=== PATIENT | male | born 1980 | race Caucasian/White ===

== ENCOUNTER 2018-10-18 16:34 | Emergency (ER) | payer BC, OTHER ==
[2018-10-18 17:01] VITALS: TEMP 98.1
[2018-10-18] MEDS ORDERED: SODIUM CHLORIDE 0.9% 2,000 ML IV ONE (17:53)
--- NOTE | 2018-10-18 17:57 | ED ---
General Adult HPI - General Source: patient Mode of arrival: ambulatory Limitations: no limitations <Love Carlton - Last Filed: 10/18/18 18:02> <Aren Weir - Last Filed: 10/18/18 20:35> - General Chief complaint: Recheck/Abnormal Lab/Rx Stated complaint: High sugar Time Seen by Provider: 10/18/18 17:22 - History of Present Illness Initial comments: 38-year-old male patient presents to the emergency department today for evaluation of increased thirst, frequent urination, and just general malaise. Patient states that for the last 2 months he has had increase in the symptoms. Patient states he did attempt to take his blood sugar twice today and the machine just read high. Patient states that a couple of years ago he had an episode of what sounds like pancreatitis where he was started on insulin, states once he had treatment his blood sugars were under control and they stopped the medication. Patient denies any dizziness or weakness. States he has had intermittent nausea with no vomiting. No abdominal pain. Patient denies any recent rash, fever, chills, shortness breath, chest pain,back pain, numbness, tingling, dizziness, weakness, hematuria, dysuria, urinary urgency, headache, visual changes, or any other complaints. (Love Carlton) - Related Data Home Medications Medication Instructions Recorded Confirmed Omeprazole [PriLOSEC] 20 mg PO HS PRN 01/13/15 10/18/18 Multivitamins, Thera [Multivitamin 1 tab PO DAILY 10/18/18 10/18/18 (formulary)] Previous Rx's Medication Instructions Recorded metFORMIN HCL [Riomet] 500 mg PO BID #60 ml 10/18/18 Allergies Allergy/AdvReac Type Severity Reaction Status Date / Time No Known Allergies Allergy Verified 10/18/18 17:28 Review of Systems ROS Other: All systems not noted in ROS Statement are negative. <Love Carlton - Last Filed: 10/18/18 18:02> ROS Other: All systems not noted in ROS Statement are negative. <Aren Weir - Last Filed: 10/18/18 20:35> ROS Statement: Those systems with pertinent positive or pertinent negative responses have been documented in the HPI. Past Medical History Past Medical History: Diabetes Mellitus, GERD/Reflux, Hyperlipidemia, Hypertension, Sleep Apnea/CPAP/BIPAP Additional Past Medical History / Comment(s): Pancreatitis History of Any Multi-Drug Resistant Organisms: None Reported Past Surgical History: No Surgical Hx Reported Past Psychological History: Anxiety Smoking Status: Current every day smoker Past Alcohol Use History: None Reported Past Drug Use History: None Reported <Love Carlton M - Last Filed: 10/18/18 18:02> General Exam Limitations: no limitations General appearance: alert, in no apparent distress, other (This is a well- developed, well-nourished adult male patient in no acute distress. Vital signs upon presentation are temperature 98.1F, pulse 107, respirations 16, blood pressure 152/91, pulse ox 97% on room air.) Eye exam: Present: normal appearance, PERRL, EOMI. Absent: scleral icterus, conjunctival injection, periorbital swelling ENT exam: Present: normal exam, normal oropharynx, mucous membranes moist Respiratory exam: Present: normal lung sounds bilaterally. Absent: respiratory distress, wheezes, rales, rhonchi, stridor Cardiovascular Exam: Present: normal rhythm, tachycardia, normal heart sounds. Absent: systolic murmur, diastolic murmur, rubs, gallop, clicks GI/Abdominal exam: Present: soft, normal bowel sounds. Absent: distended, tenderness, guarding, rebound, rigid Neurological exam: Present: alert, oriented X3, CN II-XII intact Psychiatric exam: Present: normal affect, normal mood Skin exam: Present: warm, dry, intact, normal color. Absent: rash <Love Carlton M - Last Filed: 10/18/18 18:02> General appearance: alert, in no apparent distress Head exam: Present: atraumatic, normocephalic, normal inspection Eye exam: Present: normal appearance, PERRL, EOMI. Absent: scleral icterus, conjunctival injection, periorbital swelling ENT exam: Present: normal exam, mucous membranes moist Neck exam: Present: normal inspection. Absent: tenderness, meningismus, lymphadenopathy Respiratory exam: Present: normal lung sounds bilaterally. Absent: respiratory distress, wheezes, rales, rhonchi, stridor Cardiovascular Exam: Present: regular rate, normal rhythm, normal heart sounds. Absent: systolic murmur, diastolic murmur, rubs, gallop, clicks GI/Abdominal exam: Present: soft, normal bowel sounds. Absent: distended, tenderness, guarding, rebound, rigid Extremities exam: Present: normal inspection, full ROM, normal capillary refill. Absent: tenderness, pedal edema, joint swelling, calf tenderness Back exam: Present: normal inspection Neurological exam: Present: alert, oriented X3, CN II-XII intact Psychiatric exam: Present: normal affect, normal mood Skin exam: Present: warm, dry, intact, normal color. Absent: rash <Aren Weir - Last Filed: 10/18/18 20:35> Course <Love Carlton - Last Filed: 10/18/18 18:02> <Aren Weir - Last Filed: 10/18/18 20:35> Vital Signs 10/18/18 16:58 Temperature 98.1 F Pulse Rate 107 H Respiratory 16 Rate Blood Pressure 152/91 O2 Sat by Pulse 97 Oximetry - Reevaluation(s) Reevaluation #1: 10/18/18 20:34 Medical record is reviewed (Aren Weir) Reevaluation #2: 10/18/18 20:34 Patient is reassessed awake and alert now with significant new onset diabetes mellitus, no other abnormal tests, patient has improvement in blood sugar able to tolerate oral intake, given dietary advice and can be discharged home ( Aren Weir) Medical Decision Making <Love Carlton - Last Filed: 10/18/18 18:02> - Lab Data Result diagrams: 10/18/18 18:34 10/18/18 18:34 <Aren Weir - Last Filed: 10/18/18 20:35> - Medical Decision Making 38-year-old male to ER for evaluation of abnormal lab tests elevated blood sugar. Patient presents with elevated blood sugar today. Increased thirst and increased urination. Patient's blood sugars improved control here in the ER, encouraged to drink increased water, patient can be discharged home (Aren Weir) - Lab Data Lab Results 10/18/18 10/18/18 Range/Units 18:34 18:34 WBC 7.6 (3.8-10.6) k/uL RBC 5.51 (4.30-5.90) m/uL Hgb 17.3 (13.0-17.5) gm/dL Hct 49.8 (39.0-53.0) % MCV 90.3 (80.0-100.0) fL MCH 31.3 (25.0-35.0) pg MCHC 34.7 (31.0-37.0) g/dL RDW 13.0 (11.5-15.5) % Plt Count 149 L (150-450) k/uL Neutrophils % 63 % Lymphocytes % 27 % Monocytes % 5 % Eosinophils % 2 % Basophils % 1 % Neutrophils # 4.8 (1.3-7.7) k/uL Lymphocytes # 2.1 (1.0-4.8) k/uL Monocytes # 0.4 (0-1.0) k/uL Eosinophils # 0.2 (0-0.7) k/uL Basophils # 0.1 (0-0.2) k/uL Sodium 134 L (137-145) mmol/L Potassium 5.0 (3.5-5.1) mmol/L Chloride 97 L (98-107) mmol/L Carbon Dioxide 26 (22-30) mmol/L Anion Gap 11 mmol/L BUN 14 (9-20) mg/dL Creatinine 0.85 (0.66-1.25) mg/dL Est GFR (CKD-EPI)AfAm >90 (>60 ml/min/1.73 sqM) Est GFR (CKD-EPI)NonAf >90 (>60 ml/min/1.73 sqM) Glucose 587 H* (74-99) mg/dL Calcium 9.8 (8.4-10.2) mg/dL Total Bilirubin 0.8 (0.2-1.3) mg/dL AST 61 H (17-59) U/L ALT 98 H (21-72) U/L Alkaline Phosphatase 94 (38-126) U/L Total Protein 8.4 H (6.3-8.2) g/dL Albumin 4.4 (3.5-5.0) g/dL Amylase 47 (30-110) U/L Lipase 85 (23-300) U/L Acetone, Qual Negative (Negative) Disposition <Love Carlton - Last Filed: 10/18/18 18:02> Is patient prescribed a controlled substance at d/c from ED?: No <Aren Weir - Last Filed: 10/18/18 20:35> Clinical Impression: Hyperglycemia, Dehydration, Diabetes mellitus, new onset Disposition: HOME SELF-CARE Condition: Good Instructions: Diabetic Hyperglycemia (ED) Prescriptions: metFORMIN HCL [Riomet] 500 mg PO BID #60 ml Referrals: Delores Johnston MD [Primary Care Provider] - 1-2 days
[2018-10-18 19:00] LABS: Basophils # (A) 0.1 k/uL (0-0.2); Basophils % (A) 1 %; Eosinophils # (A) 0.2 k/uL (0-0.7); Eosinophils % (A) 2 %; HCT 49.8 % (39.0-53.0); HGB 17.3 gm/dL (13.0-17.5); Lymphocytes # (A) 2.1 k/uL (1.0-4.8); Lymphocytes % (A) 27 %; MCH 31.3 pg (25.0-35.0); MCHC 34.7 g/dL (31.0-37.0); MCV 90.3 fL (80.0-100.0); Mean Platelet Volume 10.2; Monocytes # (A) 0.4 k/uL (0-1.0); Monocytes % (A) 5 %; Neutrophils # (A) 4.8 k/uL (1.3-7.7); Neutrophils % (A) 63 %; Platelet Count 149 k/uL (150-450); RBC 5.51 m/uL (4.30-5.90); WBC 7.6 k/uL (3.8-10.6)
[2018-10-18 19:15] LABS: ALT 98 U/L (21-72); AST 61 U/L (17-59); Albumin 4.4 g/dL (3.5-5.0); Alkaline Phosphatase 94 U/L (38-126); Amylase 47 U/L (30-110); Anion Gap 11 mmol/L; Blood Urea Nitrogen 14 mg/dL (9-20); Calcium 9.8 mg/dL (8.4-10.2); Carbon Dioxide 26 mmol/L (22-30); Chloride 97 mmol/L (98-107); Lipase 85 U/L (23-300); Sodium 134 mmol/L (137-145); Total Bilirubin 0.8 mg/dL (0.2-1.3); Total Protein 8.4 g/dL (6.3-8.2)
[2018-10-18 19:23] LABS: Glucose 587 mg/dL (74-99)
[2018-10-18] MEDS ORDERED: SODIUM CHLORIDE 0.9% 500 ML 500 ML IV STA (19:48)
[2018-10-18] MEDS ORDERED: metFORMIN 500 MG TAB PO STA (19:52)
[2018-10-18] MEDS ORDERED: INSULIN REGULAR 100 UNIT/ML VIAL SQ ONE (20:15)
[2018-10-18] MEDS ORDERED: INSULIN REGULAR 100 UNIT/ML VIAL IV ONE (20:15)
[2018-10-18 21:06] LABS: Glucose,Whole Blood 364 mg/dL (75-99)
[2018-10-18 21:21] LABS: Appearance,Urine Clear (Clear); Bilirubin,Urine Negative (Negative); Blood,Urine Negative (Negative); Color,Urine Light Yellow; Glucose,Urine (UA) 4+ (Negative); Ketones,Urine Trace (Negative); Leukocyte Esterase,Urine Negative (Negative); Nitrite,Urine Negative (Negative); Protein,Urine Negative (Negative); Specific Gravity,Urine 1.031 (1.001-1.035); Urobilinogen,Urine <2.0 mg/dL (<2.0)
[2018-10-18 21:37] VITALS: BP 150/83; PULSE 79; RESP 20
== END 2018-10-18 21:39 | disposition home or self-care (01) ==
LOC: EC 16:34
DX: E86.0 Dehydration (principal); E11.65 Type 2 diabetes mellitus with hyperglycemia; R00.0 Tachycardia, unspecified; R11.0 Nausea; G47.30 Sleep apnea, unspecified; F17.200 Nicotine dependence, unspecified, uncomplicated; Z99.89 Dependence on other enabling machines and devices
CPT/HCPCS: 36415; 80053; 81003; 82009; 82150; 83690; 85025; 87077; 87086; 87186; 96360; 96361; 99284

== ENCOUNTER → 2018-11-04 | Outpatient (CLI) | payer OTHER ==
--- NOTE | 2018-11-04 16:43 | CONS ---
CONSULTATION DATE OF SERVICE: 11/04/2018 This patient is a 38-year-old gentleman who has been evaluated in [facility] for obstructive sleep apnea-hypopnea syndrome. HISTORY OF PRESENT ILLNESS/SLEEP-WAKE EVALUATION: Patient was diagnosed with obstructive sleep apnea about 5 years ago in another institution. He was started on treatment with CPAP, but then for different reasons 3 years ago he stopped using his CPAP equipment and he lost his CPAP equipment. At present his sleep schedule on working days is from 11 p.m. until 4:30 a.m., and on weekends from around 3 a.m. until 10 a.m. He gets out of bed around noon. Sometimes he has problems with falling asleep, has TV set in the bedroom. He usually sleeps on the side position with his with snoring, witnessed episodes of stopped breathing during sleep, awakenings from sleep 4 times with nocturia, dry mouth, episodes of palpitations, gasping for air, restless legs. In the morning patient wakes up tired, has difficulties paying attention, falling asleep during the day, worries about his sleep, has problems with memory, concentration, irritability, depression, anxiety. [place] Sleepiness Scale is 9. PAST MEDICAL HISTORY: Positive for: 1. Diabetes. 2. Acid reflux. 3. Anxiety. 4. Depression. MEDICATIONS: 1. Metformin. 2. Omeprazole. 3. Bupropion. 4. Escitalopram. 5. Glipizide. PAST SURGICAL HISTORY: None. SOCIAL HISTORY: Positive for smoking about half pack a day for 20 years. Alcohol consumption none for the last 5 years. REVIEW OF SYSTEMS: Multiple awakenings from sleep, tiredness and sleepiness during the day. FAMILY HISTORY: Hypertension, heart problems, cancer, diabetes. PHYSICAL EXAMINATION: GENERAL: A pleasant gentleman without distress. VITAL SIGNS: BP 121/83, HR 83, RR 17, height 6 feet 0 inches, weight 331.4. Body mass index 44.8, temperature 98.6, oxygen saturation at room air 96%. HEENT: PERRLA, EOMI. Evaluation of oropharynx showed tongue protrudes midline. Moderately low position of soft palate. NECK: Supple. No JVD. Thyroid is not palpable. Wide neck; 19 inches in circumference. LUNGS: Clear to percussion and to auscultation. Good air exchange. No wheezing or rhonchi. HEART: S1, S2 regular. No murmurs, gallops or rubs. ABDOMEN: Obese. EXTREMITIES: No clubbing or cyanosis. RETAIL PROJECT MERCHANDISER: Awake, alert, and oriented X3. Cranial nerves 2 to 7 intact. There is no fasciculation or atrophy. noted. No focal deficits observed. IMPRESSION: 1. History of obstructive sleep apnea-hypopnea syndrome in the past, snoring, witnessed episodes of stopped breathing during sleep, moderately low position of soft palate, wide neck, sleepiness. Patient takes naps daily when he has time. Obstructive sleep apnea-hypopnea syndrome. 2. Obesity; body mass index 44.8. 3. Diabetes mellitus. 4. Acid reflux. 5. History of anxiety. 6. History of depression. PLAN: 1. Polysomnography for evaluation of patient's breathing during sleep. 2. CPAP/BiPAP titration if sleep study confirms obstructive sleep apnea-hypopnea syndrome. 3. Preferable position during sleep on the side. 4. No driving if patient feels any sleepiness. 5. I will see patient for follow up visit to explain results of testing and following plan. Thank you very much for referring this patient for consultation. Sincerely, Rom Haley MD, PhD, FAASM Diplomat of [employer]ash [employer] Driver of [facility] [place] MMODL / KWABENAN: [id number] /
== END | disposition home or self-care (01) ==
LOC: SLEEP 14:59
PROVIDERS: ATTEND Internal Medicine
DX: G47.33 Obstructive sleep apnea (adult) (pediatric) (principal); R35.1 Nocturia; M27.8 Other specified diseases of jaws; E66.9 Obesity, unspecified; E11.9 Type 2 diabetes mellitus without complications; K21.9 Gastro-esophageal reflux disease without esophagitis; F41.9 Anxiety disorder, unspecified; F32.9 Major depressive disorder, single episode, unspecified; Z87.891 Personal history of nicotine dependence; Z79.84 Long term (current) use of oral hypoglycemic drugs; Z79.899 Other long term (current) drug therapy; Z68.41 Body mass index [BMI] 40.0-44.9, adult; Z99.89 Dependence on other enabling machines and devices
CPT/HCPCS: 99211

== ENCOUNTER → 2019-02-18 | Outpatient (CLI) | payer OTHER ==
--- NOTE | 2019-02-18 20:48 | PN ---
PROGRESS NOTE DATE OF SERVICE: 02/18/2019 38-year-old gentleman has been followed in the Sleep Center for treatment of obstructive sleep apnea-hypopnea syndrome. Recently he had a polysomnogram which confirmed obstructive sleep apnea-hypopnea syndrome with apnea-hypopnea index of 20.9, and then he had CPAP titration and subsequently received his new CPAP unit. Today is his first visit when he started on treatment with new CPAP machine. The patient is able to use CPAP equipment every night for the whole night. Sometimes he has had some problems with his full-face mask. Otherwise, he likes his CPAP unit. I checked CPAP unit. Pressure is 13 cm of water. Usage is 23 out of 30 days for more than 4 hours, which is 77% of the time and demonstrated good compliance. Apnea- hypopnea index 3.3, which is totally normal. Quite significant leak from the machine up to 48 L/minutes. [place] Sleepiness Scale today is increased to 12. CURRENT MEDICATIONS: Metformin, Omeprazole, Buspirone, glipizide, and citalopram. PHYSICAL EXAM: GENERAL: Patient in no distress. VITAL SIGNS: BP 125/65, HR 71, RR 18, weight 346, temp 98.4. HEENT: Oropharynx low position of soft palate. Mallampati 4. Neck Supple, no JVD. Thyroid is not palpable. LUNGS Clear to percussion and to auscultation. Good air exchange. No wheezing or rhonchi. HEART S1, S2 regular. No murmurs, gallops, or rubs. ABDOMEN: Slightly obese. Soft and nontender. Bowel sounds are present. No organomegaly appreciated. EXTREMITIES No clubbing or cyanosis. CARPENTER AND JOINER Awake, alert, and oriented X3. Cranial nerves 2 to 7 intact. There is no fasciculation or atrophy. noted. No focal deficits observed. IMPRESSION: 1. Obstructive sleep apnea-hypopnea syndrome on full control with CPAP. The patient demonstrated great compliance with treatment benefitting from treatment. 2. Obesity. 3. Diabetes mellitus. 4. Acid reflux. 5. History of anxiety. 6. History of depression. 7. Significant periodic limb movements during titration, but no significant periodic limb movement during the diagnostic night. PLAN: 1. Patient will continue to use CPAP equipment every night for the whole night. 2. We will fit patient with a different style of full-face mask. We will try [place] large size mask. 3. No driving if feeling any sleepiness. Thank you very much for allowing me to participate in management of your patient. Sincerely, Rom Haley MD, PhD, FAASM Diplomat of [employer] [employer] [employer] Operator of [facility] [place] MMODL / KWABENAN: [id number] /
== END | disposition home or self-care (01) ==
LOC: SLEEP 15:52
PROVIDERS: ATTEND Internal Medicine
DX: G47.33 Obstructive sleep apnea (adult) (pediatric) (principal); E66.9 Obesity, unspecified; E11.9 Type 2 diabetes mellitus without complications; K21.9 Gastro-esophageal reflux disease without esophagitis; F41.9 Anxiety disorder, unspecified; F32.9 Major depressive disorder, single episode, unspecified; Z79.84 Long term (current) use of oral hypoglycemic drugs; Z99.89 Dependence on other enabling machines and devices; Z79.899 Other long term (current) drug therapy

== ENCOUNTER 2019-02-26 10:11 | Day surgery (SDC) | payer OTHER ==
[2019-02-25 10:43] VITALS: BMI 47.1
[~2019-02-26 10:11] MED LIST: HEPARIN SODIUM,PORCINE 5,000 UNIT/ML 1 ML VIAL SQ ONE; ceFAZolin 3 GM in SODIUM CHLORIDE 0.9% 100 ML IVPB ONE
[2019-02-26] MEDS ORDERED: LACTATED RINGERS 1,000 ML IV ONE (10:40)
[2019-02-26] MEDS ORDERED: LIDOCAINE 1% 20 ML VIAL (10MG/ML) FOR IV START INTRAPLEUR ONE (10:40)
[2019-02-26] MEDS ORDERED: ONDANSETRON 4 MG/2 ML VIAL IVP ONE (10:50)
[2019-02-26] MEDS ORDERED: DEXAMETHASONE SOD PHOSPHATE 10 MG/ML 1 ML VIAL IV ONE (10:50)
[2019-02-26 11:00] LABS: Glucose,Whole Blood 105 mg/dL (75-99)
[2019-02-26] MEDS ORDERED: MIDAZOLAM 2 MG/2 ML VIAL ONE (11:01)
[2019-02-26] MEDS ORDERED: PROPOFOL 10 MG/ML 20 ML VIAL IV ONE (11:01)
[2019-02-26] MEDS ORDERED: LIDOCAINE 1% INJ 10MG/ML (20 ML MDV) ONE (11:01)
[2019-02-26] MEDS ORDERED: SUCCINYLCHOLINE CHLORIDE VIAL 200 MG/10 ML VIAL IV ONE (11:01)
[2019-02-26] MEDS ORDERED: fentaNYL (PF) 50 MCG/ML 2 ML AMP ONE (11:01)
[2019-02-26] MEDS ORDERED: BUPIVACAIN-EPI 0.25%-1:200,000 30 ML VIAL SQ ONE ×2 (11:34→11:46)
[2019-02-26 12:06] VITALS: TEMP 98.4
[2019-02-26 12:19] VITALS: RESP 18
[2019-02-26] MEDS ORDERED: NALOXONE 0.4 MG/ML 1 ML VIAL IV PRN (12:23)
[2019-02-26] MEDS ORDERED: HYDROcodone/APAP 5-325MG 1 EACH TAB PO PRN (12:23)
--- NOTE | 2019-02-26 12:44 | P.OP ---
Date of Procedure: 02/26/19 Procedure(s) Performed: PREOPERATIVE DIAGNOSIS: Right posterior neck sebaceous cyst POSTOPERATIVE DIAGNOSIS: Same PROCEDURE: Excision with intermediate closure SURGEON: Jana EBL: Minimal ANESTHESIA: General COMPLICATIONS: None OPERATIVE PROCEDURE: The patient placed in the left decubitus position after gen eral anesthesia achieved. The right posterior neck was prepped and draped sterilely. The skin was localized. An elliptical incision was made around the sebaceous cyst. Sharp dissection took place to fully excise the sebaceous cyst. This measured 3.2 cm in size. Subcutaneous tissues were closed using 3-0 Vicryl sutures. The skin was then closed using a running 4-0 Monocryl. Length of intermediate closure 4 cm. Skin glue and sterile dressings were then applied. DISPOSITION: Stable to recovery room
[2019-02-26 13:16] VITALS: BP 158/72; PULSE 96
== END 2019-02-26 13:41 | disposition home or self-care (01) ==
LOC: OR 10:11
PROVIDERS: ATTEND Surgery
DX: L72.3 Sebaceous cyst (principal); Z88.8 Allergy status to other drugs, medicaments and biological substances; I10 Essential (primary) hypertension; E78.5 Hyperlipidemia, unspecified; G47.33 Obstructive sleep apnea (adult) (pediatric); F17.210 Nicotine dependence, cigarettes, uncomplicated; F41.9 Anxiety disorder, unspecified; K21.9 Gastro-esophageal reflux disease without esophagitis; Z82.49 Family history of ischemic heart disease and other diseases of the circulatory system; Z80.1 Family history of malignant neoplasm of trachea, bronchus and lung; Z80.6 Family history of leukemia; Z79.899 Other long term (current) drug therapy; Z79.84 Long term (current) use of oral hypoglycemic drugs
CPT/HCPCS: 88304; 11424; 12042; J2250; J0330; J1644; J1100; J0690; J2405; J2001; J3010; J2704

== ENCOUNTER 2022-04-26 13:10 | Emergency (ER) | payer OTHER ==
[2022-04-26 13:29] VITALS: BP 133/71; PULSE 71; RESP 16; TEMP 97.7
[2022-04-26] MEDS ORDERED: DIPH,PERTUS(ACELL)TETVAC-LF 0.5 ML VIAL IM ONE (14:42)
[2022-04-26] MEDS ORDERED: LIDOCAINE 1% INJ 10MG/ML (5 ML VIAL-PF) SQ ONE (14:51)
--- NOTE | 2022-04-26 14:51 | XR ---
EXAMINATION TYPE: XR hand complete LT DATE OF EXAM: 04/26/2022 CLINICAL HISTORY: Puncture wound injury with pain centered fourth finger. TECHNIQUE: Frontal, lateral and oblique images of the left hand are obtained. COMPARISON: None. FINDINGS: There is no acute fracture/dislocation evident in the left hand. The joint spaces in the l eft hand appear within normal limits. The overlying soft tissue appears unremarkable without suspici ous radiodense foreign body identified. IMPRESSION: As above.
[2022-04-26] MEDS ORDERED: KETOROLAC 15 MG/ML 1 ML VIAL IM STA (15:02)
--- NOTE | 2022-04-26 15:03 | ED ---
Wound/Laceration HPI - General Chief Complaint: Wound/Laceration Stated Complaint: Drilled Hole In Lt Hand Time Seen by Provider: 04/26/22 14:28 Source: patient Limitations: no limitations - History of Present Illness Initial Comments: Patient is a 41-year-old male who presents for evaluation of laceration. Patient states he was drilling a hole into vinyl when it slipped into his left palm. Patient reports mild pain. Last tetanus unknown. - Related Data Home Medications Medication Instructions Recorded Confirmed Omeprazole [PriLOSEC] 20 mg PO HS 01/13/15 02/25/19 Escitalopram [Lexapro] 10 mg PO HS 02/25/19 02/25/19 busPIRone HCL 10 mg PO HS 02/25/19 02/25/19 glipiZIDE [Glucotrol] 5 mg PO BID 02/25/19 02/25/19 lisinopriL [Zestril] 10 mg PO HS 02/25/19 02/25/19 Previous Rx's Medication Instructions Recorded metFORMIN HCL [Riomet] 500 mg PO BID #60 ml 10/18/18 Hydrocodone/Acetaminophen [[place] 1 tab PO Q6HR PRN 3 Days #5 tab 02/26/19 5-325] Cephalexin [Keflex] 500 mg PO Q6HR 5 Days #20 cap 04/26/22 Allergies Allergy/AdvReac Type Severity Reaction Status Date / Time No Known Allergies Allergy Verified 04/26/22 13:24 Review of Systems ROS Statement: Those systems with pertinent positive or pertinent negative responses have been documented in the HPI. ROS Other: All systems not noted in ROS Statement are negative. Past Medical History Past Medical History: Diabetes Mellitus, GERD/Reflux, Hyperlipidemia, Hypertension, Sleep Apnea/CPAP/BIPAP Additional Past Medical History / Comment(s): hx Pancreatitis, History of Any Multi-Drug Resistant Organisms: None Reported Past Surgical History: No Surgical Hx Reported Additional Past Surgical History / Comment(s): oral surgery Past Anesthesia/Blood Transfusion Reactions: No Reported Reaction Past Psychological History: Anxiety Past Alcohol Use History: None Reported Past Drug Use History: None Reported - Past Family History Mother Family Medical History: Cancer Daughter(s) Family Medical History: Cancer General Exam Limitations: no limitations General appearance: alert, in no apparent distress Head exam: Present: atraumatic, normocephalic, normal inspection Eye exam: Present: normal appearance, PERRL, EOMI. Absent: scleral icterus, conjunctival injection, periorbital swelling Respiratory exam: Present: normal lung sounds bilaterally. Absent: respiratory distress, wheezes, rales, rhonchi, stridor Cardiovascular Exam: Present: regular rate, normal rhythm, normal heart sounds. Absent: systolic murmur, diastolic murmur, rubs, gallop, clicks Extremities exam: Present: other (1 cm laceration over left anterior palm. Neurovascularly intact. Full range of motion.) Neurological exam: Present: alert, oriented X3, CN II-XII intact Psychiatric exam: Present: normal affect, normal mood Skin exam: Present: warm, dry, intact, normal color. Absent: rash Course Vital Signs 04/26/22 13:24 Temperature 97.7 F Pulse Rate 71 Respiratory 16 Rate Blood Pressure 133/71 O2 Sat by Pulse 97 Oximetry Procedures - Laceration Laceration #1 Consent Obtained: verbal consent Indication: laceration Site: other (left anterior palm ) Description: irregular Depth: simple, single layer Anesthetic Used: lidocaine 1% Anesthesia Technique: local infiltration Pre-repair: wound explored, irrigated extensively Type of Sutures: nylon Size of Sutures: 4-0 Number of Sutures: 3 Patient Tolerated Procedure: well, no complications Medical Decision Making - Medical Decision Making This is a 41-year-old male who presents for evaluation of laceration. Thorough history and examination were performed. Patient is well-appearing. There is a 1 cm laceration over the left anterior palm. Neurovascularly intact. Full range of motion. Last tetanus unknown. Left hand x-ray is negative for fracture, foreign body, and other acute abnormality. The wound was irrigated thoroughly. It was well approximated with 3 sutures. Patient tolerated the procedure well with no complication. Tetanus updated. Wound care instruction provided in detail. Patient will be discharged with Keflex as prophylaxis. Patient to return for suture removal in 7-10 days. Return parameters discussed. Patient verbalizes understanding and is agreeable to this plan. Dr. Leos is my attending. Disposition Clinical Impression: Laceration Disposition: HOME SELF-CARE Condition: Good Instructions (If sedation given, give patient instructions): Care For Your Stitches (ED), Laceration (ED), Hematoma (ED) Additional Instructions: Take antibiotic as directed. Leave wound uncovered. Keep wound clean and dry. Wash with a mild soap. Take Tylenol or anti-inflammatories such as Motrin for pain. Follow-up with primary care provider in 1-2 days. Return for suture removal in 7-10 days. Report back to the emergency department if you experience new, concerning, or worsening symptoms. Prescriptions: Cephalexin [Keflex] 500 mg PO Q6HR 5 Days #20 cap Is patient prescribed a controlled substance at d/c from ED?: No Referrals: Waqar Urban [Primary Care Provider] - 1-2 days Time of Disposition: 15:03
== END 2022-04-26 15:36 | disposition home or self-care (01) ==
LOC: EC 13:10
DX: S61.411A Laceration without foreign body of right hand, initial encounter (principal); E11.9 Type 2 diabetes mellitus without complications; E78.5 Hyperlipidemia, unspecified; I10 Essential (primary) hypertension
CPT/HCPCS: 73130; 90715; 12001; 90471; 99282; J2001; J1885; 12002

== ENCOUNTER → 2023-09-26 | Outpatient (CLI) | payer OTHER ==
[2023-09-26 19:30] LABS: Bacteria,Urine Moderate /hpf; Mucus,Urine Few /hpf; RBC,Urine 43 /hpf (0-5); WBC,Urine 88 /hpf (0-5)
[2023-09-26 19:31] LABS: Appearance,Urine Cloudy (Clear); Bilirubin,Urine Negative (Negative); Blood,Urine Large (Negative); Color,Urine Yellow; Glucose,Urine (UA) Negative (Negative); Ketones,Urine Negative (Negative); Nitrite,Urine Positive (Negative); Protein,Urine 1+ (Negative); Specific Gravity,Urine 1.025 (1.001-1.035); Urobilinogen,Urine <2.0 mg/dL (<2.0)
[2023-09-26 19:32] LABS: Leukocyte Esterase,Urine Large (Negative)
== END | disposition home or self-care (01) ==
LOC: LABPAT 13:16 → EDSTATUS 13:18
PROVIDERS: ATTEND Internal Medicine
DX: I10 Essential (primary) hypertension (principal)
CPT/HCPCS: 81001; 87086

== ENCOUNTER 2024-05-17 13:52 | Emergency (ER) | payer OTHER ==
[2024-05-17 14:03] VITALS: BP 156/109; PULSE 79; RESP 18; TEMP 97.5
[2024-05-17 14:34] LABS: Basophils # (A) 0.1 k/uL (0-0.2); Basophils % (A) 1 %; Eosinophils # (A) 0.2 k/uL (0-0.7); Eosinophils % (A) 2 %; HCT 49.3 % (39.0-53.0); HGB 16.3 gm/dL (13.0-17.5); Lymphocytes # (A) 0.9 k/uL (1.0-4.8); Lymphocytes % (A) 11 %; MCH 31.2 pg (25.0-35.0); MCHC 33.1 g/dL (31.0-37.0); MCV 94.2 fL (80.0-100.0); Mean Platelet Volume 8.7; Monocytes # (A) 0.3 k/uL (0-1.0); Monocytes % (A) 4 %; Neutrophils # (A) 6.3 k/uL (1.3-7.7); Neutrophils % (A) 81 %; Platelet Count 213 k/uL (150-450); RBC 5.24 m/uL (4.30-5.90); RDW 13.1 % (11.5-15.5); WBC 7.7 k/uL (3.8-10.6)
--- NOTE | 2024-05-17 14:43 | ED ---
General Adult HPI - General Chief complaint: Extremity Injury, Upper Stated complaint: Poss stroke-sent by Time Seen by Provider: 05/17/24 14:21 Source: patient, RN notes reviewed, old records reviewed Mode of arrival: ambulatory Limitations: no limitations - History of Present Illness Initial comments: Patient is a 43-year-old male who presents emergency department complaining of right upper extremity numbness. This has been a chronic issue. Believes it is secondary to nerve issues in the neck. Has been following up with neurology for it. States that he woke yesterday and began experiencing some right hand pain located in the hypothenar eminence. This prompted him to go to urgent care who told him to come here for further evaluation to rule out stroke. He states that the numbness has been ongoing and worsening for multiple days. Presents for further evaluation. No other acute complaints. No other deficits.States pain s hoots from his neck down his arm to his hand. This has been a chronic issue for him. It is associate with weakness as well as decreased sensation to light touch in the right upper extremity. What took him to urgent care today was some isolated pain in his right hand. - Related Data Home Medications Medication Instructions Recorded Confirmed Omeprazole [PriLOSEC] 20 mg PO HS 01/13/15 02/25/19 Escitalopram [Lexapro] 10 mg PO HS 02/25/19 02/25/19 busPIRone HCL 10 mg PO HS 02/25/19 02/25/19 glipiZIDE [Glucotrol] 5 mg PO BID 02/25/19 02/25/19 lisinopriL [Zestril] 10 mg PO HS 02/25/19 02/25/19 Previous Rx's Medication Instructions Recorded metFORMIN HCL [Riomet] 500 mg PO BID #60 ml 10/18/18 Hydrocodone/Acetaminophen [Burke 1 tab PO Q6HR PRN 3 Days #5 tab 02/26/19 5-325] Cephalexin [Keflex] 500 mg PO Q6HR 5 Days #20 cap 04/26/22 Allergies Allergy/AdvReac Type Severity Reaction Status Date / Time No Known Allergies Allergy Verified 05/17/24 14:03 Review of Systems ROS Statement: Those systems with pertinent positive or pertinent negative responses have been documented in the HPI. Review of Systems: CONST: Denies fever EYES: Denies blurry vision ENT: Denies nasal congestion C/V: Denies Chest pain RESP: Denies shortness of breath GI: Denies abdominal pain : Denies dysuria SKIN: Denies rash. MSK: Endorses right hand pain, right upper extremity numbness NEURO: Denies headache ROS Other: All systems not noted in ROS Statement are negative. Past Medical History Past Medical History: Diabetes Mellitus, GERD/Reflux, Hyperlipidemia, Hypertension, Sleep Apnea/CPAP/BIPAP Additional Past Medical History / Comment(s): hx Pancreatitis, History of Any Multi-Drug Resistant Organisms: None Reported Past Surgical History: No Surgical Hx Reported Additional Past Surgical History / Comment(s): oral surgery Past Anesthesia/Blood Transfusion Reactions: No Reported Reaction Past Psychological History: Anxiety Smoking Status: Current every day smoker Past Alcohol Use History: None Reported Past Drug Use History: Marijuana - Past Family History Mother Family Medical History: Cancer Daughter(s) Family Medical History: Cancer General Exam - General Exam Comments Initial Comments: General: Appears in no acute distress. HEAD: Normal with no signs of head trauma. EYES: PERRLA, EOMI, conjunctiva normal, no discharge. ENT: Hearing grossly intact, normal oropharynx. RESPIRATORY: Clear breath sounds bilaterally. No wheezes, rales, or rhonchi. C/V: Regular rate and rhythm. S1 and S2 auscultated, no edema, peripheral pulses 2+ and intact throughout ABD: Abd is soft, nontender, nondistended EXT: Normal range of motion, no obvious deformity. Hand exam unremarkable. SKIN: No rashes or lesions observed on exposed skin. NEURO: Alert and oriented x 4. Right upper extremity decreased sensation to light touch as well as weakness which has been ongoing for multiple days. History of this from suspected nerve impingement in his neck. States the pain shoots down from his neck to his hand. NIH is 0 for new symptoms. GCS of 15. Current episode of decreased sensation and weakness in the right upper extremity has been ongoing for multiple days. This has been a recurrent issue for him. Limitations: no limitations Course Vital Signs 05/17/24 13:59 Temperature 97.5 F L Pulse Rate 79 Respiratory 18 Rate Blood Pressure 156/109 O2 Sat by Pulse 99 Oximetry Medical Decision Making - Medical Decision Making Was pt. sent in by a medical professional or institution (, PA, [employer], urgent care, hospital, or [facility]...) When possible be specific @ -No Did you speak to anyone other than the patient for history (EMS, parent, family, police, friend...)? What history was obtained from this source @ -No Did you review nursing and triage notes (agree or disagree)? Why? @ -I reviewed and agree with nursing and triage notes Were old charts reviewed (outside hosp., previous admission, EMS record, old EKG, old radiological studies, urgent care reports/EKG's, [facility] records)? Report findings @ -No old charts were reviewed Differential Diagnosis (chest pain, altered mental status, abdominal pain women, abdominal pain men, vaginal bleeding, weakness, fever, dyspnea, syncope, headache, dizziness, GI bleed, back pain, seizure, CVA, palpatations, mental health, musculoskeletal)? @ -CVA, TIA, peripheral neuropathy, nerve impingement. This list is not all inclusive. EKG interpreted by me (3pts min.). @ -As above X-rays interpreted by me (1pt min.). @ -Hand x-ray reveals no evidence of acute hand injury or process. CT interpreted by me (1pt min.). @ -CT brain and C-spine negative for any obvious acute process ongoing degenerative changes in the neck. Thoracic spine also degenerative changes without any obvious acute process. U/S interpreted by me (1pt. min.). @ -None done What testing was considered but not performed or refused? (CT, X-rays, U/S, labs)? Why? @ -None What meds were considered but not given or refused? Why? @ -None Did you discuss the management of the patient with other professionals (professionals i.e. , PA, [employer], lab, RT, psych nurse, social welfare research worker, billet examiner, teacher, chief executive officer, sample case porter)? Give summary @ -No Was smoking cessation discussed for >3mins.? @ -No Was critical care preformed (if so, how long)? @ -No Were there social determinants of health that impacted care today? How? (Homelessness, low income, unemployed, alcoholism, drug addiction, transportation, low edu. Level, literacy, decrease access to med. care, shelter, rehab)? @ -No Was there de-escalation of care discussed even if they declined (Discuss DNR or withdrawal of care, Hospice)? DNR status @ -No What co-morbidities impacted this encounter? (DM, HTN, Smoking, COPD, CAD, Cancer, CVA, ARF, Chemo, Hep., AIDS, mental health diagnosis, sleep apnea, morbid obesity)? 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 Was patient admitted / discharged? Hospital course, mention meds given and route, prescriptions, significant lab abnormalities, going to OR and other pertinent info. @ -Patient presents emergency department with relatively chronic neurological complaints. Right upper extremity weakness, numbness, shooting pain has been ongoing for at least a few days this time but has been an intermittent issue for the patient. Does follow-up with neurology for it. Presented to urgent care for the right hand pain today. Presents today for further evaluation at this time. Was sent here by urgent care for evaluation of prep for possible stroke. NIH is 0 for acute symptoms that are brand-new for the patient. Seems to be mostly likely related to his chronic neuropathy or impingement syndrome however I did recommend CT brain. He was in agreement this plan. Does not meet criteria for stroke activation. NIH is 0. We will obtain some basic labs as well as creatinine kinase in addition to right hand x-ray and screening EKG. Patient in agreement this plan. Resting comfortably otherwise. Drove himself here. Due to high ED volumes, I did evaluate the patient in the waiting room. Vital signs within acceptable limits.Imaging returned unremarkable. Laboratory studies are remarkable for hemolyzed potassium in the setting of normal renal function therefore I low suspicion of hyperkalemia, particularly with EKG appearing within acceptable limits. I discussed results with the patient. Due to the patient having chronic right upper extremity neurological issues due to some nerve problems, as well as having some worsening numbness in the right upper extremity, shooting pain down the right upper extremity, as well as weakness in the right upper extremity which is chronic with the newest complaint being the numbness in the right hand and right upper extremity over the last 3 days, I do believe this is likely related to some form of radiculopathy, especially since he can provoke it with turning his neck from [id number]. Discussed that with the negative workup for stroke I have low suspicion this is a CVA at this time. He has no other acute complaints. All symptoms are in the chronically affected extremity. He expressed understanding was in agreement. He will be given a dose of steroids at this time and instructions to follow-up with his neurologist. Return if any worsening symptoms. He was in agreement this plan. I instructed the patient to follow up with their PCP in the next 1-3 days. I explained that the patient should return to the emergency department if they experience any worsening symptoms. Strict return precautions were discussed with the patient. The patient expressed understanding of these instructions. I answered all questions that the patient had. The patient was discharged home in good condition with their prescriptions and follow up information. Undiagnosed new problem with uncertain prognosis? @ -No Drug Therapy requiring intensive monitoring for toxicity (Heparin, Nitro, Insulin, Cardizem)? @ -No Were any procedures done? @ -No Diagnosis/symptom? @ -Right upper extremity radiculopathy Acute, or Chronic, or Acute on Chronic? @ -Acute on chronic Uncomplicated (without systemic symptoms) or Complicated (systemic symptoms)? @ -Uncomplicated Side effects of treatment? @ -None Exacerbation, Progression, or Severe Exacerbation] @ -No Poses a threat to life or bodily function? @ -Unlikely - Lab Data Result diagrams: 05/17/24 14:28 05/17/24 14:28 Lab Results 05/17/24 05/17/24 Range/Units 14:28 14:28 WBC 7.7 (3.8-10.6) k/uL RBC 5.24 (4.30-5.90) m/uL Hgb 16.3 (13.0-17.5) gm/dL Hct 49.3 (39.0-53.0) % MCV 94.2 (80.0-100.0) fL MCH 31.2 (25.0-35.0) pg MCHC 33.1 (31.0-37.0) g/dL RDW 13.1 (11.5-15.5) % Plt Count 213 (150-450) k/uL MPV 8.7 Neutrophils % 81 % Lymphocytes % 11 % Monocytes % 4 % Eosinophils % 2 % Basophils % 1 % Neutrophils # 6.3 (1.3-7.7) k/uL Lymphocytes # 0.9 L (1.0-4.8) k/uL Monocytes # 0.3 (0-1.0) k/uL Eosinophils # 0.2 (0-0.7) k/uL Basophils # 0.1 (0-0.2) k/uL Sodium 138 (137-145) mmol/L Potassium 5.2 H (3.5-5.1) mmol/L Chloride 108 H (98-107) mmol/L Carbon Dioxide 23 (22-30) mmol/L Anion Gap 7 mmol/L BUN 14 (9-20) mg/dL Creatinine 0.64 L (0.66-1.25) mg/dL Est GFR (CKD-EPI)AfAm >90 (>60 ml/min/1.73 sqM) Est GFR (CKD-EPI)NonAf >90 (>60 ml/min/1.73 sqM) Glucose 105 H (74-99) mg/dL Calcium 9.2 (8.4-10.2) mg/dL Total Bilirubin 0.9 (0.2-1.3) mg/dL AST 33 (17-59) U/L ALT 21 (4-49) U/L Alkaline Phosphatase 48 (38-126) U/L Creatine Kinase 94 (55-170) U/L Total Protein 7.6 (6.3-8.2) g/dL Albumin 4.7 (3.5-5.0) g/dL - EKG Data -: EKG Interpreted by Me EKG Comments: 12-lead Electrocardiogram Interpretation Note EKG was reviewed and interpreted by myself. 12-lead ECG performed at 1543 is interpreted by me as revealing sinus bradycardia at a rate of 56 beats per minute. [place] is normal. AL interval is 158 ms, QRS duration is 90 ms, QTc is 386 ms.. There were no ST or T wave abnormalities to suggest myocardial ischemia or injury. R wave progression across the precordium was satisfactory. By my interpretation this EKG is non-diagnostic for acute ischemia. Disposition Clinical Impression: Radiculopathy affecting upper extremity Disposition: HOME SELF-CARE Condition: Fair Instructions (If sedation given, give patient instructions): Cervical Radiculopathy (ED), Acute Neck Pain (ED) Is patient prescribed a controlled substance at d/c from ED?: No Referrals: Sammy Llanes DO [Primary Care Provider] - 1-2 days Time of Disposition: 16:20
[2024-05-17 14:53] LABS: African American GFR (CKD) >90 (>60 ml/min/1.73 sqM); Albumin 4.7 g/dL (3.5-5.0); Anion Gap 7 mmol/L; Blood Urea Nitrogen 14 mg/dL (9-20); Calcium 9.2 mg/dL (8.4-10.2); Carbon Dioxide 23 mmol/L (22-30); Chloride 108 mmol/L (98-107); Glucose 105 mg/dL (74-99); Non-African American GFR(CKD) >90 (>60 ml/min/1.73 sqM); Sodium 138 mmol/L (137-145)
[2024-05-17 15:02] LABS: ALT 21 U/L (4-49); AST 33 U/L (17-59); Alkaline Phosphatase 48 U/L (38-126); Creatine Kinase 94 U/L (55-170); Potassium 5.2 mmol/L (3.5-5.1); Total Bilirubin 0.9 mg/dL (0.2-1.3); Total Protein 7.6 g/dL (6.3-8.2)
--- NOTE | 2024-05-17 15:39 | CT ---
EXAMINATION TYPE: CT brain jany wo con DATE OF EXAM: 05/17/2024 COMPARISON: None HISTORY: arm numbness and tingling and back pain. s CT DLP: 2846.3 mGycm Automated exposure control for dose reduction was used. TECHNIQUE: CT scan of the head and cervical spine are performed without contrast. Findings: Head CT: Ventricles, basal cisterns and sulci over convexities within normal limits and there is no mass, mass effect or shift of midline structures. No abnormal density is seen throughout the brain parenchyma and there is no acute intra or extra-axia l hemorrhage. Posterior fossa including the brainstem, fourth ventricle and cerebellar pontine angles are grossly n ormal. The intraorbital contents appear normal and symmetric. Visualized paranasal sinuses are well aerated. CT cervical spine: Craniovertebral junction relationships and prevertebral soft tissues are normal. The cervical vertebral segments are normal in height and alignment and there is no fracture subluxati on. There is mild degenerative disc disease with mild disc space narrowing and spondylosis at C6-7. The bony cervical canal is widely patent and there is no bony encroachment of the neural foramina. The paraspinal soft tissues unremarkable. IMPRESSION: 1. Head CT: No acute bleed or mass effect. 2. CT cervical spine: No acute trauma. Mild degenerative disease in the lower cervical spine.
--- NOTE | 2024-05-17 15:42 | CT ---
EXAMINATION TYPE: CT thoracic spine wo con DATE OF EXAM: 05/17/2024 COMPARISON: None HISTORY: RT arm numbness and tingling and back pain. CT DLP: 2846.3 mGycm Automated exposure control for dose reduction was used. FINDINGS: The thoracic vertebral segments are normal in height and alignment is no fracture or subluxation. There is scattered areas of mild disc space narrowing and spondylosis in the mild degenerative diseas e. The paraspinal soft tissues are unremarkable. No large disc herniation. There is no bony encroachment of the neural foramina or spinal canal IMPRESSION: MULTILEVEL MILD DEGENERATIVE DISC DISEASE WITH NO OTHER SIGNIFICANT ABNORMALITY SEEN.
--- NOTE | 2024-05-17 15:50 | XR ---
EXAMINATION TYPE: XR hand limited RT DATE OF EXAM: 05/17/2024 3:32 PM CLINICAL INDICATION:Male, 43 years old with history of pain; [facility] COMPARISON: None TECHNIQUE: XR hand limited RT Frontal, lateral and oblique views were obtained. FINDINGS: Normal alignment of the visualized joints. No acute osseous pathology is identified. No e vidence of soft tissue swelling. No significant degeneration IMPRESSION: No acute osseous pathology.
[2024-05-17] MEDS: methylPREDNISolone SOD SUCCI 125 MG/2 ML VIAL IV STA (16:39)
== END 2024-05-17 16:43 | disposition home or self-care (01) ==
LOC: EC 13:52
DX: M50.30 Other cervical disc degeneration, unspecified cervical region (principal); M54.10 Radiculopathy, site unspecified; R00.1 Bradycardia, unspecified; F17.200 Nicotine dependence, unspecified, uncomplicated
CPT/HCPCS: 36415; 93005; 80053; 82550; 85025; 73120; 72128; 72125; 70450; 99284; 96374; J2919

== ENCOUNTER 2024-12-13 17:00 | Emergency (ER) | payer OTHER ==
[2024-12-13 17:05] VITALS: TEMP 98.3
--- NOTE | 2024-12-13 17:35 | XR ---
EXAMINATION TYPE: XR chest 2V DATE OF EXAM: 12/13/2024 5:27 PM COMPARISON: Chest radiographs from 09/19/2017 TECHNIQUE: XR chest 2V Frontal and lateral views of the chest. CLINICAL INDICATION:Male, 44 years old with history of Chest Pain; FINDINGS: Lungs/Pleura: There is no evidence of pleural effusion, focal consolidation, or pneumothorax. Pulmonary vascularity: Unremarkable. Heart/mediastinum: Cardiomediastinal silhouette is unremarkable. Musculoskeletal: No acute osseous pathology. IMPRESSION: No acute cardiopulmonary disease/process. [facility], , 12/13/2024 5:33 PM
[2024-12-13 17:40] LABS: Basophils # (A) 0.1 k/uL (0-0.2); Basophils % (A) 1 %; Eosinophils # (A) 0.2 k/uL (0-0.7); Eosinophils % (A) 2 %; Lymphocytes # (A) 2.7 k/uL (1.0-4.8); Lymphocytes % (A) 29 %; MCH 29.8 pg (25.0-35.0); MCHC 32.1 g/dL (31.0-37.0); MCV 93.1 fL (80.0-100.0); Mean Platelet Volume 8.9; Monocytes # (A) 0.6 k/uL (0-1.0); Monocytes % (A) 7 %; Neutrophils # (A) 5.4 k/uL (1.3-7.7); Neutrophils % (A) 60 %; Platelet Count 246 k/uL (150-450); RBC 6.02 m/uL (4.30-5.90); RDW 12.7 % (11.5-15.5); WBC 9.1 k/uL (3.8-10.6)
[2024-12-13 17:53] LABS: ALT 53 U/L (4-49); AST 31 U/L (17-59); African American GFR (CKD) >90 (>60 ml/min/1.73 sqM); Albumin 5.1 g/dL (3.5-5.0); Alkaline Phosphatase 74 U/L (38-126); Anion Gap 11 mmol/L; Blood Urea Nitrogen 13 mg/dL (9-20); Calcium 10.6 mg/dL (8.4-10.2); Carbon Dioxide 30 mmol/L (22-30); Chloride 98 mmol/L (98-107); Glucose 121 mg/dL (74-99); Magnesium 1.8 mg/dL (1.6-2.3); Non-African American GFR(CKD) >90 (>60 ml/min/1.73 sqM); Potassium 4.7 mmol/L (3.5-5.1); Sodium 139 mmol/L (137-145); Total Bilirubin 0.9 mg/dL (0.2-1.3); Total Protein 8.6 g/dL (6.3-8.2)
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
[2024-12-13 18:47] VITALS: RESP 18
[2024-12-13] MEDS: KETOROLAC 15 MG/ML 1 ML VIAL IVP STA (18:47)
[2024-12-13] MEDS: DEXAMETHASONE SOD PHOSPHATE 10 MG/ML 1 ML VIAL IVP STA (18:47)
[2024-12-13] MEDS: HYDROmorphone 1 MG/ML 1 ML SYRINGE IVP STA (18:47)
[2024-12-13 18:53] LABS: INR 0.9 (<1.2); Partial Thromboplastin Time 22.4 sec (22.0-30.0); Prothrombin Time 10.5 sec (10.0-12.5)
[2024-12-13] MEDS: CYCLOBENZAPRINE 10MG STARTER 3 TAB BTL PO STA (19:51)
[2024-12-13] MEDS: traMADol 50 MG STARTER PACK 3 TAB BTL PO STA (19:51)
[2024-12-13] MEDS: IBUPROFEN 600 MG STARTER PACK 4 TAB BTL PO STA (19:52)
[2024-12-13 20:01] VITALS: BP 160/106; PULSE 73
== END 2024-12-13 20:01 | disposition home or self-care (01) ==
LOC: EC 17:00
DX: R07.89 Other chest pain (principal); F17.200 Nicotine dependence, unspecified, uncomplicated
CPT/HCPCS: 36415; 93005; 80053; 83735; 84484; 85025; 85610; 85730; 71046; 99285; 96374; 96375; J1100; J1171; J1885